=== PATIENT | male | born 1975 | race Caucasian/White ===

== ENCOUNTER → 2016-08-11 | Outpatient (CLI) | payer BC ==
[~2016-08-11] MED LIST: IBUP-1050 PO
--- NOTE | 2016-08-11 15:00 | DIAGNOSTIC IMAGING REPORT ---
LEFT KNEE 1 OR 2 VIEWS ROUTINE CLINICAL HISTORY: Left knee pain. COMPARISON: Left knee radiograph July 09, 2015. FINDINGS: Alignment of left knee is anatomic. There are postsurgical findings consistent with an ACL reconstruction. There is no joint effusion or fracture. Joint spaces are preserved. There is mild osteophytosis of the medial and patellofemoral compartments. IMPRESSION: 1. No acute fracture or joint effusion of the left knee. 2. Status post left ACL reconstruction. 3. Mild arthritis of the medial and patellofemoral compartments. Electronically signed by: Carrillo Ray M.D. 08/11/2016 2:58 PM Dictated Date/Time: 08/11/2016 2:58 PM
== END | disposition home or self-care (01) ==
LOC: C.RAD1850 14:42
PROVIDERS: ATTEND Family Medicine
DX: M25.562 Pain in left knee (principal); M17.9 Osteoarthritis of knee, unspecified; Z98.890 Other specified postprocedural states

== ENCOUNTER 2017-07-03 10:15 | Emergency (ER) | payer BC ==
[~2017-07-03] VITALS: Ht 180.3 cm; Wt 80.6 kg
[2017-07-03 10:17] VITALS: TEMP 36.9; Ht 180.3 cm; Wt 80.6 kg
[2017-07-03] MEDS ORDERED: IBUPROFEN 800 MG TAB PO STA (10:27)
--- NOTE | 2017-07-03 11:02 | EMERGENCY ROOM VISIT NOTE ---
History Report prepared by Muriel: Akash Alvarez Under the Supervision of: Dr. Klever Humphreys M.D. First contact with patient: 10:24 Chief Complaint: BACK PAIN Stated Complaint: LEFT UPPER BACK AND LEFT ARM PAIN History of Present Illness The patient is a 42 year old male who presents to the Emergency Room with complaints of intermittent left upper back pain that began three months ago. He describes this pain as a "knot." When the patient woke up this morning about 2 hours ago, he had another episode of this pain. However, it was the most severe it has ever been with radiation down his left arm. The radiation of his pain has never happened before. He denies any abnormal movements or injury to the area. The patient regularly works out multiple times per week, stating that he participates in full body, heavyweight exercises that include his shoulders. Over the past months, he had been working out through the pain. His pain is exacerbated with lying flat on his back. He has been following up with his chiropractor. He denies any fevers, chest pain, shortness of breath, neck pain, nausea, vomiting, or abdominal pain. He denies any past medical history and does not take any medications. He denies any family history of cardiac disease. His symptoms did not worsen with long car rides. He denies any recent surgeries , but has had lower lumbar nerve impingement surgery in the past. He denies any past neck surgeries. He has been taking Aleve and Ibuprofen for pain management. Source of History: patient Onset: 3 months ago Position: back (upper left) Symptom Intensity: severe Quality: cramping Timing: intermittent Modifying Factors (Worsening): rest (lying flat on back) Associated Symptoms: No fevers, No neck pain, No chest pain, No SOB, No nausea, No vomiting, No abdominal pain Note: His pain is radiating down his left arm. Review of Systems See HPI for pertinent positives and negatives. A total of ten systems were reviewed and were otherwise negative. Past Medical & Surgical Medical Problems: (1) Chronic lumbar pain Surgical Problems: (1) History of lumbar discectomy Family History Patient reports no known family medical history. Social History Smoking Status: Never Smoker Alcohol Use: occasionally Marital Status: Occupation Status: employed Current/Historical Medications Scheduled PRN Ibuprofen Tab (Motrin), 800 MG PO Q8H PRN for Pain Allergies Uncoded Allergies: ESCARGOT (Allergy, Unknown, ASTHMA, 11/18/15) Physical Exam Vital Signs Date Time Temp Pulse Resp B/P (MAP) Pulse Ox O2 Delivery O2 Flow Rate FiO2 07/03/17 13:16 75 17 130/88 99 07/03/17 10:17 36.9 85 18 137/93 99 Room Air Physical Exam GENERAL: Awake, alert, well-appearing, in no distress HENT: Normocephalic, atraumatic. Oropharynx unremarkable. EYES: Normal conjunctiva. Sclera non-icteric. NECK: Supple. No nuchal rigidity. FROM. No JVD. RESPIRATORY: Clear to auscultation. CARDIAC: Regular rate, normal rhythm. Extremities warm and well perfused. Pulses equal. ABDOMEN: Soft, non-distended. No tenderness to palpation. No rebound or guarding. No masses. RECTAL: Deferred. MUSCULOSKELETAL: Chest examination reveals no tenderness. The back is symmetrical on inspection without obvious abnormality. There is mild tenderness along the left trapezius which reproduces his distal symptoms. There is no CVA tenderness to palpation. No joint edema. He has additional tenderness to the left forearm along the radial distribution. Active/passive FROM intact. 5/5 Strength and SILT. LOWER EXTREMITIES: Calves are equal size bilaterally and non-tender. No edema. No discoloration. NEURO: Normal sensorium. No sensory or motor deficits noted. SKIN: No rash or jaundice noted. Medical Decision & Procedures ER Provider Diagnostic Interpretation: Radiology results as stated below per my review and radiologist interpretation: L SHOULDER MIN 2 VIEWS ROUTINE CLINICAL HISTORY: Left shoulder pain. No recent trauma. COMPARISON: Left shoulder radiographs April 20, 2016. FINDINGS: Alignment of the left glenohumeral joint is anatomic. No fracture or suspicious lesion is identified on this examination. An osteophyte along the superior aspect of the distal left clavicle is unchanged. This is chronic. Deformity of the distal left clavicle is unchanged since prior exam of April 20, 2016. IMPRESSION: 1. No acute fracture or dislocation of the left shoulder. 2. Unchanged appearance of the left acromioclavicular joint since exam of April 20, 2016 with chronic distal left clavicular deformity and osteophytosis. This is likely degenerative or posttraumatic. However, post surgical findings could appear similar. Electronically signed by: Carrillo Ray M.D. 07/03/2017 11:21 AM Dictated Date/Time: 07/03/2017 11:19 AM CHEST ONE VIEW PORTABLE CLINICAL HISTORY: back pain pain COMPARISON STUDY: No previous studies for comparison. FINDINGS: The bones soft tissues and hemidiaphragms are normal. The cardiomediastinal silhouette is normal. The lungs are clear. The pulmonary vasculature is normal. IMPRESSION: Negative chest. The above report was generated using voice recognition software. It may contain grammatical, syntax or spelling errors. Electronically signed by: Wilton Gray M.D. 07/03/2017 11:19 AM Dictated Date/Time: 07/03/2017 11:18 AM Medications Administered Medications (Trade) Dose Ordered Sig/Kvng Route Start Time Stop Time Status Last Admin Dose Admin Ibuprofen (Motrin Tab) 800 mg NOW STAT PO 07/03/17 10:27 07/03/17 10:36 DC 07/03/17 10:44 800 MG ED Course 1024: The patient was evaluated in room C4. A complete history and physical exam was performed. 1242: I reevaluated the patient. Discussed results and discharge instructions: He verbalized understanding and agreement. The patient is ready for discharge. Medical Decision I reviewed the patient's past medical history, medications, and the nursing notes as described above. Differential diagnosis includes but is not limited to: musculoskeletal strain, rotator cuff sprain, overuse, or tendonitis. The patient is a 42-year-old gentleman who presents to emergency Department with left shoulder arm pain intermittent numbness. History of present illness. Arrival the patient is in no acute distress, afebrile stable vital signs. On exam the patient has mild tenderness to the lateral aspect of the left trapezius dose tenors to palpation in the left forearm along the radial distribution replacing the patient's symptoms. Chest x-ray unremarkable. Left shoulder plain film notable for arthritic changes that appear to be post- traumatic. I further discussed these findings with the patient and he did endorse a remote history of an before meals separation which is consistent with the x-ray findings. Patient reports not feeling any improvement after ibuprofen and was requesting an MRI. However explained that his symptoms are mostly consistent with arthritis and possibly a tendinitis in the setting of his regular workout regimen. I recommended that conservative management is the most appropriate initial treatment with anti-inflammatories, heat, and rest as well as pcp follow-up and possibly PT if necessary. Although symptoms could be explained by cervical radiculopathy, it seems more likely that his symptoms are related to his shoulder. Otherwise, there is no indication for emergent MRI given the patient has 5/5 strength and SILT x 4 extremities and no concerning sx such as urinary retention or bowel incontinence. I explained to the patient that he should follow up with his PCP and they may arrange for an MRI if the patient feels he is not improved with conservative management and/or they may provide patient with a an orthopedic referral. I further explained that narcotics are an effective pain medication for acute severe pain such as from a bone fracture or after surgery, however, they are not recommended for chronic pain such as for headaches or back/shoulder pain as they have the potential to promote rebound hyperalgesia resulting in increased severity of the initial chronic pain when not taking narcotics. Findings and plan for follow-up reviewed with patient. Patient agreeable and d/c'd per discharge instructions. Medication Reconcilliation Current Medication List: was personally reviewed by me Blood Pressure Screening Patient's blood pressure: Elevated blood pressure Blood pressure disposition: Elevated BP felt to be situational Impression Primary Impression: Acromioclavicular joint arthritis Additional Impression: Shoulder pain, left Scribe Attestation The scribe's documentation has been prepared under my direction and personally reviewed by me in its entirety. I confirm that the note above accurately reflects all work, treatment, procedures, and medical decision making performed by me. Departure Information Dispostion Home / Self-Care Prescriptions Ibuprofen Tab (MOTRIN) 800 Mg Tab 800 MG PO Q8H Y for Pain for 7 Days, #21 TAB Prov: Klever Humphreys M.D. 07/03/17 Referrals Tomás Ndiaye M.D. (PCP) Forms HOME CARE DOCUMENTATION FORM, IMPORTANT VISIT INFORMATION Patient Instructions Arthritis Acromioclavicular, ED Shoulder Pain [facility] [place] [facility] Additional Instructions Please follow up with your primary care physician in the next 1-3 days for re- evaluation and possible physical therapy referral. You cause of your symptoms may be due to arthritis and or possible a tendinitis. Otherwise, your exam and xrays did not show signs of an emergent condition at this time. Ibuprofen for pain as needed. Heating pad a 20 minute intervals throughout the day for additional pain relief. Avoid strenuous activity. Return to the emergency department for worsening symptoms as described in the accompanying instructions. Problem Qualifiers
--- NOTE | 2017-07-03 11:20 | DIAGNOSTIC IMAGING REPORT ---
CHEST ONE VIEW PORTABLE CLINICAL HISTORY: back pain pain COMPARISON STUDY: No previous studies for comparison. FINDINGS: The bones soft tissues and hemidiaphragms are normal. The cardiomediastinal silhouette is normal. The lungs are clear. The pulmonary vasculature is normal. IMPRESSION: Negative chest. The above report was generated using voice recognition software. It may contain grammatical, syntax or spelling errors. Electronically signed by: Wilton Gray M.D. 07/03/2017 11:19 AM Dictated Date/Time: 07/03/2017 11:18 AM
--- NOTE | 2017-07-03 11:22 | DIAGNOSTIC IMAGING REPORT ---
L SHOULDER MIN 2 VIEWS ROUTINE CLINICAL HISTORY: Left shoulder pain. No recent trauma. COMPARISON: Left shoulder radiographs April 20, 2016. FINDINGS: Alignment of the left glenohumeral joint is anatomic. No fracture or suspicious lesion is identified on this examination. An osteophyte along the superior aspect of the distal left clavicle is unchanged. This is chronic. Deformity of the distal left clavicle is unchanged since prior exam of April 20, 2016. IMPRESSION: 1. No acute fracture or dislocation of the left shoulder. 2. Unchanged appearance of the left acromioclavicular joint since exam of April 20, 2016 with chronic distal left clavicular deformity and osteophytosis. This is likely degenerative or posttraumatic. However, post surgical findings could appear similar. Electronically signed by: Carrillo Ray M.D. 07/03/2017 11:21 AM Dictated Date/Time: 07/03/2017 11:19 AM
[2017-07-03] MEDS ORDERED: IBUP-1451 PO (12:25)
[2017-07-03 13:16] VITALS: BP 130/88; PULSE 75; O2SAT 99
== END 2017-07-03 12:55 | disposition home or self-care (01) ==
LOC: C.EDB 10:16 → C.EDC 12:55
DX: M19.012 Primary osteoarthritis, left shoulder (principal); Z98.890 Other specified postprocedural states; R03.0 Elevated blood-pressure reading, without diagnosis of hypertension

== ENCOUNTER 2017-07-06 05:02 | Emergency (ER) | payer BC ==
[~2017-07-06 05:02] MED LIST changes: -IBUP-1050 PO; +IBUP-1451 PO
[2017-07-06 05:09] VITALS: Ht 180.3 cm
[2017-07-06] MEDS ORDERED: ONDANSETRON INJ 2 MG/ML 2 ML VIAL IV STA (05:37)
[2017-07-06] MEDS ORDERED: KETOROLAC TROMETHAMINE 30 MG/ML VIAL IV STA (05:37)
[2017-07-06] MEDS ORDERED: MoRPHine SULFATE 4 MG/ML 1 ML CARP\\VIAL IV STA (05:37)
[2017-07-06] MEDS ORDERED: HYDROmorphone INJ 0.5 MG/0.5 ML SYR IV STA (06:01)
--- NOTE | 2017-07-06 06:40 | EMERGENCY ROOM VISIT NOTE ---
History Report prepared by Muriel: Stephanie Casey Under the Supervision of: Dr. Myah Kerns D.O. First contact with patient: 05:25 Chief Complaint: SHOULDER PAIN Stated Complaint: NECK,ARM AND ELBOW PAIN History of Present Illness The patient is a 42 year old male who presents to the Emergency Room with complaints of persistent left arm pain starting VINYL DIPPER. The patient had an MRI yesterday which showed a left foraminal disc herniation at C6-7 with impingement of the exiting nerve root. He also has lesser degenerative disc at the C6-7 level and bony changes at the C3-4 level with mild spinal stenosis and no focal disc herniation. The pain is present in the left elbow, forearm, and hand. He also has a sharp pain in his left neck. He currently rates his discomfort as a 10/10 in severity. He had Vicodin and ibuprofen VINYL DIPPER. He has been having numbness in his left arm also. He denies any injury. He denies any abdominal pain. He does not have any medical problems. He has been on prednisone. Source of History: patient, spouse/significant other Onset: VINYL DIPPER Position: arm (left) Symptom Intensity: 10/10 Quality: other (pain) Timing: other (persistent) Associated Symptoms: + neck pain, + numbness, No abdominal pain Review of Systems See HPI for pertinent positives & negatives. A total of 10 systems reviewed and were otherwise negative. Past Medical & Surgical Medical Problems: (1) Chronic lumbar pain Surgical Problems: (1) History of lumbar discectomy Family History Patient reports no known family medical history. Social History Smoking Status: Never Smoker Alcohol Use: occasionally Marital Status: Housing Status: lives with family Occupation Status: employed Current/Historical Medications Scheduled PRN Ibuprofen Tab (Motrin), 800 MG PO Q8H PRN for Pain Oxycodone/Acetaminophen 5MG/325MG (Percocet 5MG/325MG), 2 TABLETS PO Q4H PRN for Pain Allergies Uncoded Allergies: ESCARGOT (Allergy, Unknown, ASTHMA, 11/18/15) Physical Exam Vital Signs Date Time Temp Pulse Resp B/P (MAP) Pulse Ox O2 Delivery O2 Flow Rate FiO2 07/06/17 07:11 37.0 99 17 142/90 98 07/06/17 06:50 99 17 142/90 98 Room Air 07/06/17 05:09 105 26 158/78 94 Room Air Physical Exam Neck: Supple; no JVD, nuchal rigidity, cervical lymphadenopathy. He does have pain with palpation of the left cervical paraspinous muscles. Heart: Regular rate and rhythm. There is a normal S1 and S2 with no murmurs, clicks, or gallops appreciated. Lungs: Clear to auscultation bilaterally with no wheezes, rales, or rhonchi. Abdomen: Soft, completely nontender, nondistended, with good bowel sounds. There are no palpable pulsatile masses or hepatosplenomegaly. There is no guarding, rigidity, or rebound noted. Extremities: No evidence of cyanosis, clubbing, or edema. There are easily palpable peripheral pulses. Skin: warm and dry with good turgor and no rashes. Neuro: Normal muscle strength in the upper extremities. He has normal sensation in both hands, forearms and deltoid area Medical Decision & Procedures Medications Administered Medications (Trade) Dose Ordered Sig/Kvng Route Start Time Stop Time Status Last Admin Dose Admin Ketorolac Tromethamine (Toradol Inj) 30 mg NOW STAT IV 07/06/17 05:37 07/06/17 05:39 DC 07/06/17 05:49 30 MG Morphine Sulfate (MoRPHine SULFATE INJ) 4 mg NOW STAT IV 07/06/17 05:37 07/06/17 05:39 DC 07/06/17 05:49 4 MG Ondansetron HCl (Zofran Inj) 4 mg NOW STAT IV 07/06/17 05:37 07/06/17 05:39 DC 07/06/17 05:50 4 MG Hydromorphone HCl (Dilaudid Inj) 0.5 mg NOW STAT IV 07/06/17 06:01 07/06/17 06:02 DC 07/06/17 06:08 0.5 MG Procedure Medications: Zofran Inj 4 mg IV, Morphine Sulfate 4 mg IV, Toradol Inj 30 mg IV , Dilaudid Inj 0.5 mg IV. ED Course 0531: The patient was evaluated in room B3B. A complete history and physical examination were performed. Nursing notes and previous electronic medical records were reviewed. IV lock was established. 0537: Zofran Inj 4 mg IV, Morphine Sulfate 4 mg IV, Toradol Inj 30 mg IV. 0559: I reevaluated the patient. He rates his pain 6/10. He is still having pain. 0601: Dilaudid Inj 0.5 mg IV. 0635: I reevaluated the patient. He appears to be pain free. He is moving his arm around and texting. He is requesting I speak with Dr. Rodrigues. He rates his pain as a 0/10. 0639: I discussed the patient's case with Dr. Rodrigues, orthopedic surgeon [facility]. He will see him at 0800 in the office tomorrow morning. 0644: I reevaluated the patient. He would like to go home. I discussed findings and results with him. He verbalized agreement of the treatment plan. He was discharged home. Medical Decision The patient is a 42 year old male who presents to the ED with left arm pain. Differential diagnosis includes neuropathic pain, cervical radiculopathy, herniated cervical disc. The patient presents to emergency by mother with severe left upper extremity pain and left-sided neck pain after being diagnosed last evening with a herniated cervical disc at C6-C7. The patient is neurologically intact. His presentation of pain seemed consistent with severe neuropathic pain secondary to cervical radiculopathy. I was able to treat his pain adequately so he was pain-free at the time of discharge. The patient had been taking Vicodin for pain at home with no relief. I switched this to Percocet and encouraged him to finish the course of prednisone. Medication Reconcilliation Current Medication List: was personally reviewed by me Blood Pressure Screening Patient's blood pressure: Elevated blood pressure Blood pressure disposition: Elevated BP felt to be situational Consults Time Called: 637 Consulting Physician: Dr. Rodrigues, orthopedic surgeon [facility] Returned Call: 0639 I discussed the patient's case with him. He will see him at 0800 in the office tomorrow morning. Impression Primary Impression: Herniation of cervical intervertebral disc with radiculopathy Scribe Attestation The scribe's documentation has been prepared under my direction and personally reviewed by me in its entirety. I confirm that the note above accurately reflects all work, treatment, procedures, and medical decision making performed by me. Departure Information Dispostion Home / Self-Care Prescriptions Oxycodone/Acetaminophen 5MG/325MG (PERCOCET 5MG/325MG) Tab 2 TABLETS PO Q4H Y for Pain, #20 TAB Prov: Myah Kerns D.O. 07/06/17 Referrals Tomás Ndiaye M.D. (PCP) Forms HOME CARE DOCUMENTATION FORM, IMPORTANT VISIT INFORMATION Patient Instructions [facility] Additional Instructions Rest. Avoid using the left arm at all. Percocet - 2 tabs. every 4 hours for pain. This is an opioid and is addictive. You should only take it for a short time. Stop the other pain meds. Continue the steroids. Do not drive while taking it.
[2017-07-06] MEDS ORDERED: OXYC-57 PO (06:52)
[2017-07-06 07:11] VITALS: BP 142/90; PULSE 99; TEMP 37; O2SAT 98
== END 2017-07-06 07:12 | disposition home or self-care (01) ==
LOC: C.EDB 05:03
DX: M50.10 Cervical disc disorder with radiculopathy, unspecified cervical region (principal)

== ENCOUNTER → 2017-07-07 | Outpatient (CLI) | payer BC ==
[~2017-07-07] MED LIST changes: +IBUP-1428 PO; +OXYC-57 PO
[2017-07-07 13:45] LABS: HEMATOCRIT 39.8 % (42-52); MEAN CELL VOLUME 92.6 fL (80-100); MEAN CORPUSCULAR HEMOGLOBIN 31.2 pg (25-34); MEAN CORPUSCULAR HGB CONC 33.7 g/dl (32-36); MEAN PLATELET VOLUME 9.1 fL (7.4-10.4); PLATELET COUNT 224 K/uL (130-400); WHITE BLOOD COUNT 7.29 K/uL (4.8-10.8)
== END | disposition home or self-care (01) ==
LOC: C.LABBC 09:30
PROVIDERS: ATTEND Orthopaedic Surgery Orthopaedic Surgery of the Spine
DX: Z01.812 Encounter for preprocedural laboratory examination (principal)

== ENCOUNTER 2017-07-12 05:17 | Observation (INO) | payer BC ==
[2017-07-11 14:57] VITALS: BMI 24.0
[2017-07-12] VITALS (18 sets, daily range): BP systolic 133–161; BP diastolic 75–96; PULSE 58–89; TEMP 36.4–36.9; O2SAT 2–98; Ht 180.3 cm; Wt 79.5 kg
[~2017-07-12] VITALS: Ht 180.3 cm; Wt 79.5 kg
[~2017-07-12 05:17] MED LIST changes: -IBUP-1451 PO
[2017-07-12] MEDS ORDERED: LACTATED RINGER'S 1000ML 1,000 ML IV SCH (06:00)
[2017-07-12] MEDS ORDERED: CEFAZOLIN 2000MG IV PUSH 10 ML IV SCH (06:00)
[2017-07-12] MEDS ORDERED: NSS 1000ML IV SCH (06:00)
[2017-07-12] MEDS ORDERED: ONDANSETRON INJ 2 MG/ML 2 ML VIAL ONE ×2 (06:41→07:56)
[2017-07-12] MEDS ORDERED: MIDAZOLAM HCL 1 MG/ML 2ML VIAL ONE (06:41)
[2017-07-12] MEDS ORDERED: DEXAMETHASONE SOD INJ 4 MG/ML VIAL ONE ×2 (06:41→07:56)
[2017-07-12] MEDS ORDERED: HYDROmorphone INJ 2 MG/ML SYR/VIAL ONE (06:41)
[2017-07-12] MEDS ORDERED: FENTANYL CITRATE INJ 50 MCG/1 ML 2 ML VIAL ONE ×4 (06:41→10:36)
[2017-07-12] MEDS ORDERED: GLYCOPYRROLATE INJ 0.2 MG/ML VIAL ONE (06:41)
[2017-07-12] MEDS ORDERED: LIDOCAINE HCL 2% 2 ML VIAL (20MG/ML) ONE (06:41)
[2017-07-12] MEDS ORDERED: NEOSTIGMINE METHYLSULFATE 5 MG/5 ML SYR ONE (06:41)
[2017-07-12] MEDS ORDERED: PROPOFOL IV EMULSION 10 MG/ML 20 ML VIAL IV ONE (06:41)
[2017-07-12] MEDS ORDERED: BACITRACIN 50000 UNIT VIAL ONE (06:54)
[2017-07-12] MEDS ORDERED: BUPIVACAINE/EPINEPHRINE 0.5% MPF 1:200,000 30 ML VIAL ONE ×2 (06:54→07:35)
[2017-07-12] MEDS ORDERED: THROMBIN FOR SOLN 20000 UNIT KIT ONE (06:54)
[2017-07-12] MEDS ORDERED: GELATIN SPONGE SZ 100 ONE (06:54)
--- NOTE | 2017-07-12 07:14 | History & Physical Bridge Note ---
H&P Re-Evaluation Bridge Note: I have examined the patient, reviewed the History & Physical and in the interval since the performance of the History & Physical I have noted the following changes of clinical significance: No changes noted
--- NOTE | 2017-07-12 07:22 | History and Physical ---
History & Physical Date Jul 12, 2017. 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 Past Medical/Surgical History Medical Problems: (1) Chronic lumbar pain Surgical Problems: (1) History of lumbar discectomy Additional History Hepatic Disease: No Endocrine Disorder: No Kidney Disease: No Hypertension: No Heart Disease: No Bleeding Tendencies: No Infectious Diseases: No Allergies Coded Allergies: NO KNOWN DRUG ALLERGIES (Verified Allergy, Unknown, ., 07/12/17) Uncoded Allergies: ESCARGOT (Allergy, Unknown, ASTHMA, 11/18/15) Home Medications Scheduled PRN Ibuprofen (Motrin), 800 MG PO Q8H PRN for Pain Oxycodone/Acetaminophen 5MG/325MG (Percocet 5MG/325MG), 2 TABLETS PO Q4H PRN for Pain Physical Examination Skin: warm/dry Eyes: normal inspection ENT: normal ENT inspection Head: normocephalic Neck: supple, + pertinent finding (loss of range of motion in flexion extension and in rotation) Cardiovascular: regular rate, rhythm Abdomen / GI: normal bowel sounds Back: normal inspection Extremities: + pertinent finding (weakness numbness and tingling wrist extensors and triceps function) Genitourinary - Male: normal male genitalia Neurologic/Psych: + pertinent finding (loss of strength loss of sensation) Diagnosis Cervical disc herniation C6-7 cervical spine ASA Classification: ASA Class II Plan of Treatment ACDF cervical spine C6 7 and iliac crest bone graft
[2017-07-12] MEDS ORDERED: PROMETHAZINE HCL INJ 6.25 MG in SODIUM CHLORIDE 0.9% 50ML 50 ML IV PRN (08:15)
[2017-07-12] MEDS ORDERED: EpHEDrine SULFATE INJ 50 MG/ML AMP IV PRN (08:15)
[2017-07-12] MEDS ORDERED: ATROPINE SULFATE 0.1 MG/ML 5ML SYR IV PRN (08:15)
[2017-07-12] MEDS ORDERED: ONDANSETRON INJ 2 MG/ML 2 ML VIAL IV PRN ×2 (08:15→10:00)
[2017-07-12] MEDS ORDERED: FENTANYL CITRATE INJ 50 MCG/1 ML 2 ML VIAL IV PRN (08:15)
[2017-07-12] MEDS ORDERED: HYDROmorphone INJ 1 MG/ML SYR IV PRN (08:15)
[2017-07-12] MEDS ORDERED: SODIUM CHLORIDE 0.9% 1000ML 1,000 ML IV SCH (09:52)
--- NOTE | 2017-07-12 09:54 | [facility] Post Operative Brief Note ---
Immediate Operative Summary Operative Date Jul 12, 2017. Pre-Operative Diagnosis Cervical disc herniation C6-7 cervical spine Post-Operative Diagnosis Cervical disc herniation C6-7 cervical spine Procedure(s) Performed C6-C7 Anterior Cervical Discectomy and Fusion with Right Iliac Crest Bone Graft Surgeon Dr. Gil Rodrigues Application Packaging Consultant Surgeon(s) Jairo Acevedo PA-C Estimated Blood Loss 10 mL Findings cord compression Specimens No pathology specimens per surgeon Complication(s) None Disposition Recovery Room / PACU
--- NOTE | 2017-07-12 09:59 | DIAGNOSTIC IMAGING REPORT ---
Cervical SPINE, INTRAOPERATIVE FLUOROSCOPY HISTORY: C6-C7 ACDF. FLUOROSCOPY TIME: 11 seconds. FINDINGS: Intraoperative fluoroscopy was provided for the cervical spine. A single fluoroscopic spot image of the cervical spine. There is anterior cervical discectomy and fusion within the lower cervical spine. The exact level is difficult to determine on this small [id number]. The hardware appears intact. IMPRESSION: Fluoroscopy provided for a anterior cervical discectomy and fusion of the lower cervical spine. The hardware appears intact.. Electronically signed by: Bryce Dickson M.D. 07/12/2017 9:58 AM Dictated Date/Time: 07/12/2017 9:56 AM
[2017-07-12] MEDS ORDERED: IBUPROFEN 800 MG TAB PO PRN (10:00)
[2017-07-12] MEDS ORDERED: NALOXONE HCL 0.4 MG/1 ML VIAL/CARP IV PRN (10:00)
[2017-07-12] MEDS ORDERED: MAGNESIUM HYDROXIDE SUSP 30 ML UDC PO PRN (10:00)
[2017-07-12] MEDS ORDERED: DEXAMETHASONE INJ 8 MG in SYRINGE 0 ML IV PRN (10:00)
[2017-07-12] MEDS ORDERED: ACETAMINOPHEN IV 1,000 MG in EMPTY BAG 0 ML IV PRN (10:00)
[2017-07-12] MEDS ORDERED: LORAZEPAM INJ 0.5 MG in SYRINGE 0.75 ML IV PRN (10:00)
[2017-07-12] MEDS ORDERED: RACEPINEPHRINE 2.25% NEBU SOLN 0.5 ML VIAL INH PRN (10:00)
[2017-07-12] MEDS ORDERED: IV FLUIDS COMPLETED PRN (10:15)
--- NOTE | 2017-07-12 10:42 | OPERATIVE REPORT ---
DATE OF OPERATION: 07/12/2017 PREOPERATIVE DIAGNOSIS: Spinal cord compression, large disc herniation, C6-C7 cervical spine. POSTOPERATIVE DIAGNOSIS: Same. PROCEDURE: 1. Included an anterior cervical discectomy classic Fong Blank approach at C6-C7 cervical spine, removal of large disc herniation. 2. Right structural autograft from the right iliac crest through a separate incision of course. 3. Bone grafting of the interspace at C6-C7 and anterior plate at C6-C7. SURGEON: Gil Rodrigues DO. INFORMATICA MDM DEVELOPER: Jairo Acevedo PA-C. COMPLICATIONS: Zero. BLOOD LOSS: Less than 20. ANESTHESIA: General. DESCRIPTION OF PROCEDURE: The patient was taken to the operating room. A general intubated anesthetic provided to the patient, kept supine, prepped and draped sterile. His iliac crest and cervical spine scrubbed first with Betadine and prepped with ChloraPrep. Draped sterile. We made a skin incision transverse right over the C6 interspace dissecting the soft tissue. We came down on the anterior aspect of the spinal vertebral body at C6-C7. We marked this with a 22 gauge spinal needle. We then performed a formal discectomy first with a 15 scalpel blade, pituitaries of various size and curettes cleaning out the disc interval. I was able to remove a large herniation that was posterior to the posterior longitudinal ligament. It was up behind the vertebral body of C6 out to the neural foramen favoring the left hand side. I felt that all visible disc material particularly the compressive aspect was completely removed. We then went to the right iliac crest fascia. Skin incision, fascial incision. I was able to harvest a structural autograft approximately 8-7 mm in height tapering to about 14 mm and approximately 15 mm left to right. This was placed into the vacated discectomy site at C6-C7. The fit was near anatomic. We irrigated thoroughly. We then placed a small plate by the [employer] over the construct, 18 mm in length, 2.5 mm in thickness, transfixed with 4 cortical cancellous screws. We locked it down, took a crosstable lateral radiograph. The fit seemed perfect. We irrigated and closed over a Deepa drain in the cervical spine. No drain in the crest. Sterile dressings applied. Cervical collar applied. The patient returned to recovery room satisfactory and stable. No apparent interoperative complications. Sponge and needle counts correct. IMPLANTS USED: By [employer]. I attest to the content of the Intraoperative Record and any orders documented therein. Any exception s are noted below.
[2017-07-12] MEDS ORDERED: LABETALOL HCL IV 5 MG/ML 20ML IV ONE (11:01)
--- NOTE | 2017-07-12 11:04 | Anesthesiology Progress Note ---
Anesthesia Post Op Note Date & Time Jul 12, 2017 at 11:03 Vital Signs Pain Intensity: 4 Vital Signs Past 12 Hours Date Time Temp Pulse Resp B/P (MAP) Pulse Ox O2 Delivery O2 Flow Rate FiO2 07/12/17 10:53 71 14 07/12/17 10:53 71 14 100 07/12/17 10:52 170/96 07/12/17 10:51 157/101 07/12/17 10:48 80 13 100 07/12/17 10:48 78 13 07/12/17 10:46 157/95 07/12/17 10:43 82 17 07/12/17 10:43 82 17 100 07/12/17 10:41 160/96 07/12/17 10:38 76 14 100 07/12/17 10:38 76 14 07/12/17 10:36 151/94 07/12/17 10:33 75 13 07/12/17 10:33 75 13 100 07/12/17 10:31 154/94 07/12/17 10:28 77 12 100 07/12/17 10:28 77 12 07/12/17 10:26 151/87 07/12/17 10:23 76 13 07/12/17 10:23 76 13 100 07/12/17 10:22 77 16 100 07/12/17 10:22 78 16 07/12/17 10:21 149/84 07/12/17 10:17 81 15 100 07/12/17 10:17 80 15 07/12/17 10:16 153/85 07/12/17 10:12 85 16 97 07/12/17 10:12 85 16 07/12/17 10:11 146/79 07/12/17 10:08 155/82 07/12/17 10:07 36.2 78 16 155/82 100 Oxymask 10 07/12/17 10:07 84 11 07/12/17 10:07 84 11 100 07/12/17 05:46 36.5 67 20 134/91 (105) 96 Room Air Notes Mental Status: alert / awake / arousable, participated in evaluation Pt Amnestic to Procedure: Yes Nausea / Vomiting: adequately controlled Pain: adequately controlled Airway Patency, RR, SpO2: stable & adequate BP & HR: stable & adequate Hydration State: stable & adequate Anesthetic Complications: no major complications apparent Will give dose of labetalol to ensure patient is more normotensive and will then transfer from PACU.
--- NOTE | 2017-07-12 11:28 | Anesthesiology Progress Note ---
Anesthesia Post Op Note Date & Time Jul 12, 2017 at 11:28 Vital Signs Pain Intensity: 4 Vital Signs Past 12 Hours Date Time Temp Pulse Resp B/P (MAP) Pulse Ox O2 Delivery O2 Flow Rate FiO2 07/12/17 11:14 36.3 07/12/17 11:09 69 16 07/12/17 11:09 69 16 100 07/12/17 11:06 164/96 07/12/17 11:04 81 16 07/12/17 11:04 83 16 100 07/12/17 11:01 167/100 07/12/17 10:59 76 18 100 07/12/17 10:59 76 18 07/12/17 10:56 165/97 07/12/17 10:54 72 16 100 07/12/17 10:54 73 16 07/12/17 10:53 71 14 07/12/17 10:53 71 14 100 07/12/17 10:52 170/96 07/12/17 10:51 157/101 07/12/17 10:48 80 13 100 07/12/17 10:48 78 13 07/12/17 10:46 157/95 07/12/17 10:43 82 17 07/12/17 10:43 82 17 100 07/12/17 10:41 160/96 07/12/17 10:38 76 14 100 07/12/17 10:38 76 14 07/12/17 10:36 151/94 07/12/17 10:33 75 13 07/12/17 10:33 75 13 100 07/12/17 10:31 154/94 07/12/17 10:28 77 12 100 07/12/17 10:28 77 12 07/12/17 10:26 151/87 07/12/17 10:23 76 13 07/12/17 10:23 76 13 100 07/12/17 10:22 77 16 100 07/12/17 10:22 78 16 07/12/17 10:21 149/84 07/12/17 10:17 81 15 100 07/12/17 10:17 80 15 07/12/17 10:16 153/85 07/12/17 10:12 85 16 97 07/12/17 10:12 85 16 07/12/17 10:11 146/79 07/12/17 10:08 155/82 07/12/17 10:07 36.2 78 16 155/82 100 Oxymask 10 07/12/17 10:07 84 11 07/12/17 10:07 84 11 100 07/12/17 05:46 36.5 67 20 134/91 (105) 96 Room Air Notes Mental Status: alert / awake / arousable, participated in evaluation Pt Amnestic to Procedure: Yes Nausea / Vomiting: adequately controlled Pain: adequately controlled Airway Patency, RR, SpO2: stable & adequate BP & HR: stable & adequate Hydration State: stable & adequate Anesthetic Complications: no major complications apparent
[2017-07-12] MEDS ORDERED: LABETALOL HCL IV 5 MG/ML 20ML IV PRN (11:30)
[2017-07-12] MEDS ORDERED: NURSING VERBAL MED ORDER ONE ×2 (11:30→20:00)
[2017-07-12] MEDS: DEXAMETHASONE INJ 6 MG in SYRINGE 0 ML IV SCH ×2 (13:31→21:15)
[2017-07-12] MEDS: OXYCODONE/ACETAMINOPHEN 5-325 TAB PO PRN ×3 (13:38→23:36)
[2017-07-12] MEDS ORDERED: INFLUENZA VIRUS QUAD VACCINE 0.5 ML SYR IM. ONE (14:00)
[2017-07-12] MEDS ORDERED: INFLUENZA ADMINISTRATION CHARGE ONE (14:00)
[2017-07-12] MEDS: CEFAZOLIN IV 1,000 MG in SYRINGE 0 ML IV SCH ×2 (15:55→23:36)
[2017-07-12] MEDS: HYDROmorphone INJ 1 MG/ML SYR IV PRN ×2 (17:03→21:15)
[2017-07-12] MEDS: DOCUSATE SODIUM 100 MG CAP PO SCH (20:44)
[2017-07-13] VITALS (8 sets, daily range): BP systolic 120–151; BP diastolic 67–89; PULSE 55–66; TEMP 36.6–36.8; O2SAT 96–99
[2017-07-13] MEDS: HYDROmorphone INJ 1 MG/ML SYR IV PRN (00:46)
[2017-07-13] MEDS: DEXAMETHASONE INJ 6 MG in SYRINGE 0 ML IV SCH (05:38)
--- NOTE | 2017-07-13 07:21 | Discharge Instructions ---
Discharge Instructions Date of Service Jul 13, 2017. Admission Reason for Admission: Cord Compression Discharge Discharge Diagnosis / Problem: same Discharge Goals Goal(s): Improve function Activity Recommendations Activity Limitations: as noted below Lifting Limitations: until after follow-up appointment Exercise/Sports Limitations: until after follow-up appointment May Resume Sexual Activity: after follow-up appointment Shower/Bathe: keep incision dry home , rest, recover . Instructions / Follow-Up Instructions / Follow-Up MEDICATIONS: Please take your prescriptions as instructed at your pre-op appointment. SPECIAL CARE: The following information is intended to answer some of the common questions and concerns regarding your surgery. Each patient is an individual and receives individual counselling throughout the course of treatment, from diagnosis to surgery all the way through recovery. What follows is not an exhaustive list, but should be a useful guide to some of the common questions and concerns patients have regarding their surgeries. These are not provided to keep you from calling us; rather, they give you something accurate and concrete to reference as you recover from your procedure. If you need us, we are available to you. As always, if you are not sure about something, call us at [phone]. MEDICAL EMERGENCIES: For these conditions, call 911 or go to your local hospital-based Emergency Department - not [facility] or equivalent. * Paralysis * Severe chest pain or difficulty breathing * Swelling or redness of either leg Spine procedures can be rather complex and though complications are rare, they do occur. In such cases, effective advice regarding emergency situations cannot always be addressed over the telephone. You may be referred to the emergency department for more effective management of your problem. Activity Limitations: It is important to give your body time to heal, so please limit your activities : * In general, don't do anything that moves your spine too much. You should avoid contact sports, twisting or heavy lifting while you recover. * 5-10 pounds is all you should attempt to lift. * You should not plan on driving for approximately 3 weeks and you should avoid traveling more than 30-45 minutes at a time. Longer trips should be broken down with walking breaks spaced appropriately. * Physical therapy is not usually required. * Walking and good posture practices will help you recover and regain your function. * Avoid straining or sudden changes in position. * In general, the goal is to take it easy and recover. Don't cause any new problems. Just relax. Showers: * Do not take a bath, use a Jacuzzi or hot tub or otherwise submerge your incision. * It is usually safe to take a shower 4-5 days after your surgery. * Your incision does not require any special creams or ointments. * Simply clean it with soap and water, dry and re-dress with a clean bandage afterwards. Incision: * Keep incision clean, dry and protected until your first follow-up appointment. * Some amount of drainage and redness is normal. Any drainage should be fairly clear and not have a foul odor. * If you feel anything is wrong or you have excessive drainage, please call us. * Your stitches and shea will be removed 10-14 days after your surgery. At the time of your first post-op visit. * Neck surgeries are typically closed with a suture underneath the skin. The steri-strips over the incision should be maintained until we see you in the office. Bracing: * You may be provided with a back or neck brace to encourage good posture and prevent injury. It will remind you not to do too much as you heal and will alert others to the fact that you have had a surgery. * Back braces may be removed for showers and when you are resting at home. They must be worn when you are walking around for any period of time or for travel. * For neck surgery, you will likely be provided with two cervical collars. The soft collar ([place] or foam rubber) is worn most commonly throughout the day and while sleeping. The plastic collar (provided at the hospital) is for showering/bathing. * Except while eating, collars should remain in place. More specifically, bracing is provided for a purpose and should be worn. * Please obtain your brace or collars prior to your operation and bring them to the hospital with you on the day of surgery. * You should also bring your collars to your post-op appointment with Dr. Rodrigues. You should always take good care of your body and practice healthy habits, especially following surgery. You should: * Follow your doctor's treatment plan * Sit and stand properly with good posture (ears over shoulders, shoulders over hips) Don't slouch * Learn to lift correctly * Exercise regularly (low-impact aerobic exercise is especially good, but check with your doctor first) * Generally, be up and walking for 5-10 minutes at a time at least 3-4 times per day from the day you get home * Increasing walking to tolerance until you can walk for 20-30 minutes at a time * Attain and maintain a healthy body weight * Eat healthy foods ( a well-balanced, low-fat diet rich in fruits and vegetables) and get enough calcium * Avoid excessive use of alcohol When to call our office - If you notice any of the following: * Increased pain not relieve by pain medicine * Fevers greater then 100 degrees F, chills or flu symptoms * Increased redness around incision * Drainage from the incision that is not clear * Any foul smelling drainage * Swelling or fluid collection beneath the skin Miscellaneous: * In the hospital, you may be given a walker or cane for support while walking. These are temporary needs and are intended to prevent injuries due to falls. You may discontinue them when you feel strong and steady enough on your feet. * Sleep in a comfortable position. We find that many patients find a lounge chair or recliner with several pillows to be beneficial in the early post-operative period. * The support stockings should be used for 7-10 days and may be discontinued when you are back to walking more and conducting usual household activities. No problem is insignificant. We are here to help you and get you well. Contact us at [phone]. Definitions: Foraminotomy: If part of the disc or a bone spur (osteophyte) is pressing on a nerve as it leaves the vertebra (through an exit called the foramen), a foraminotomy may be done. Otomy means "to make an opening." A foraminotomy is making the opening of the foramen larger, so the nerve can exit without being compressed. Laminotomy: Similar to the foraminotomy, a laminotomy makes a larger opening, this time in your bony plate protecting your spinal canal and spinal cord (the lamina). The lamina may be pressing on your nerve, so the surgeon may make more room for the nerves using a laminotomy. Laminectomy: Sometimes, a laminotomy is not sufficient. The surgeon may need to remove all or part of the lamina. This procedure is called a laminectomy. This can often be done at many levels without any harmful effects. Current Hospital Diet Patient's current hospital diet: Regular Diet Discharge Diet Recommended Diet: Regular Diet Procedures Procedures Performed: C6-C7 Anterior Cervical Discectomy and Fusion with Right Iliac Crest Bone Graft Pending Studies Studies pending at discharge: no Medical Emergencies . Who to Call and When: Medical Emergencies: If at any time you feel your situation is an emergency, please call 911 immediately. . Non-Emergent Contact Non-Emergency issues call your: Surgeon . "Provider Documentation" section prepared by Gil Rodrigues. . VTE Core Measure Inpt VTE Proph given/why not?: Treatment not indicated
[2017-07-13] MEDS: CEFAZOLIN IV 1,000 MG in SYRINGE 0 ML IV SCH (08:00)
[2017-07-13] MEDS: OXYCODONE/ACETAMINOPHEN 5-325 TAB PO PRN ×2 (09:16→11:01)
[2017-07-13] MEDS: DOCUSATE SODIUM 100 MG CAP PO SCH (09:16)
[2017-07-13] MEDS ORDERED: OXYC-57 PO (11:22)
--- NOTE | 2017-07-13 17:36 | DISCHARGE SUMMARY ---
HOSPITAL COURSE: He was improved, stable, seen at approximately 11:00 in the morning on the 13 of July. He had no gross neurological issues or complaints, some weakness of triceps musculature, no shortness of breath, no chest pain, taking p.o. Wound protected. IMPRESSION: Anterior cervical discectomy and fusion for spinal cord compression, doing well in the short run. DISPOSITION: Dressing changed has been provided. Collar has been provided with medications. He will be discharged home with his improved stable condition. Instructions given, precautions given from the computer here at [facility]. He tolerated it well and we will see him back in the office in 10 days. Prescription for Percocet offered as well.
[2017-07-14] MEDS ORDERED: BISACODYL 5 MG TABEC PO PRN (06:00)
[2017-07-14] MEDS ORDERED: BISACODYL 10 MG SUPP PR PRN (06:00)
== END 2017-07-13 12:14 | disposition home or self-care (01) ==
LOC: C.ACU 05:17 → C.3E 06:00 → INTOOBSV 06:00 → ENRESERV 11:08
PROVIDERS: ADMIT Orthopaedic Surgery Orthopaedic Surgery of the Spine; ATTEND Orthopaedic Surgery Orthopaedic Surgery of the Spine
DX: M50.20 Other cervical disc displacement, unspecified cervical region (principal)

== ENCOUNTER 2024-03-03 15:53 | Observation (INO) ==
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
[2024-03-03] MEDS: LIDOCAINE/EPINEPH/TETRACAINE 1 EA SYR EXT STA (16:49)
[2024-03-03] MEDS: LIDOCAINE 1% LOCAL 20 ML VIAL INFIL ONE (16:49)
[2024-03-03] MEDS: AMOXICILLIN/CLAVULANATE 875 MG TAB PO ONE (17:13)
--- NOTE | 2024-03-03 17:45 | XRay Report ---
XR knee RT 3V CLINICAL HISTORY: R knee abrasions, foreign bodies COMPARISON STUDY: None. FINDINGS: Soft tissue swelling/injury within the lateral aspect of the knee. No radiopaque foreign dav dies. No fracture or dislocation. No significant knee effusion. IMPRESSION: Soft tissue injury within the lateral aspect of the right knee. No radiopaque foreign dav dies. No acute fractures. ACT 112: Negative or not required by law. Electronically signed by: Bryce Dickson M.D. 03/03/2024 5:43 PM
--- NOTE | 2024-03-03 17:47 | XRay Report ---
XR hand RT min 3V routine CLINICAL HISTORY: Right hand abrasions. Assess for foreign body. COMPARISON STUDY: None. FINDINGS: Overlying bandages within the right hand. No additional radiopaque foreign bodies. No acute fracture or dislocation. Soft tissue swelling at the MCP joints. IMPRESSION: 1. No fracture or dislocation within the right hand. 2. Overlying bandages within the right hand. No additional radiopaque foreign bodies. ACT 112: Negative or not required by law. Electronically signed by: Bryce Dickson M.D. 03/03/2024 5:46 PM
--- NOTE | 2024-03-03 17:48 | XRay Report ---
XR elbow RT min 3V routine CLINICAL HISTORY: R elbow abrasions, foreign bodies COMPARISON STUDY: Right elbow 09/16/2019. FINDINGS: No fracture or dislocation. Posterior soft tissue swelling with a few punctate foci of supe rficial debris noted. This is best seen on the lateral view. No elbow effusion. IMPRESSION: 1. No fracture or dislocation within the right elbow. 2. Posterior soft tissue swelling with a few punctate foci of superficial debris. ACT 112: Negative or not required by law. Electronically signed by: Bryce Dickson M.D. 03/03/2024 5:47 PM
[2024-03-03] MEDS: oxyCODONE HCL IR 5 MG TAB (IMMEDIATE RELEASE) PO STA (17:49)
[2024-03-03] MEDS: AMOXICILLIN/CLAVULANATE 875MG HOME PACK PO ONE (18:53)
[2024-03-03] MEDS: KETOROLAC TROMETHAMINE 10 MG TABLET PO STA (18:53)
[2024-03-03] MEDS: KETOROLAC TROMETHAMINE 15 MG/ML VIAL IV ONE (19:01)
[2024-03-03] MEDS: ceFAZolin 2000MG 2,000 MG/15 ML SYR IV STA (19:01)
[2024-03-03 19:04] LABS: Basophils # (auto) 0.07 K/uL (0.00-0.20); Basophils % (auto) 0.7 %; Eosinophils # (auto) 0.28 K/uL (0.00-0.50); Eosinophils % (auto) 2.7 %; Hematocrit (blood only) 39.4 % (42.0-52.0); Hemoglobin 12.9 g/dl (14.0-18.0); Immature Granulocytes # (auto) 0.03 K/uL (0.01-0.20); Immature Granulocytes % (auto) 0.3 %; Lymphocytes # (auto) 2.13 K/uL (1.20-3.40); Lymphocytes % (auto) 20.5 %; Mean Corpuscular Hgb Conc 32.7 g/dL (32.0-36.0); Mean Corpuscular Volume 88.5 fL (80.0-100.0); Mean Platelet Volume 9.3 fL (9.4-12.4); Monocytes # (auto) 0.91 K/uL (0.11-0.59); Monocytes % (auto) 8.8 %; Neutrophils # (auto) 6.97 K/uL (1.40-6.50); Platelet Count 267 K/uL (130-400); RDW Coefficient of Variation 13.6 % (11.5-14.5); RDW Standard Deviation 44.3 fL (36.4-46.3); Red Blood Count 4.45 M/uL (4.70-6.10); White Blood Count 10.39 K/ul (4.8-10.8)
[2024-03-03 19:12] LABS: Albumin Globulin Ratio 1.5 (0.9-2); Albumin Level 4.4 gm/dl (3.4-5.0); BUN Creatinine Ratio 19.1 (10-20); Bilirubin,Total 0.5 mg/dl (0.2-1.0); Calcium 9.3 mg/dl (8.6-10.3); Creatinine Clr Calc Pharmacy 75.8 ml/min; Est GFR (African American) 90.9 ml/min; Est GFR (Non-African American) 78.4 ml/min; Potassium 3.8 mmol/L (3.5-5.1); Total Protein 7.4 gm/dl (6.0-8.3)
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
[2024-03-04] MEDS: KETOROLAC TROMETHAMINE 15 MG/ML VIAL IV ONE ×2 (02:02→10:35)
[2024-03-04] MEDS: ceFAZolin 2000MG 2,000 MG/15 ML SYR IV SCH (02:03)
[2024-03-04] MEDS: MELATONIN 3 MG TAB PO PRN (04:26)
[2024-03-04] MEDS: ACETAMINOPHEN 325 MG TAB PO PRN (05:56)
[2024-03-04] MEDS: HYDROmorphone INJ 0.5 MG/0.5 ML SYR IV STA (06:36)
[2024-03-04 10:17] LABS: Basophils # (auto) 0.05 K/uL (0.00-0.20); Basophils % (auto) 0.5 %; Eosinophils # (auto) 0.62 K/uL (0.00-0.50); Eosinophils % (auto) 6.5 %; Hematocrit (blood only) 35.6 % (42.0-52.0); Hemoglobin 11.9 g/dl (14.0-18.0); Immature Granulocytes # (auto) 0.01 K/uL (0.01-0.20); Immature Granulocytes % (auto) 0.1 %; Lymphocytes # (auto) 2.13 K/uL (1.20-3.40); Lymphocytes % (auto) 22.5 %; Mean Corpuscular Hemoglobin 29.6 pg (25.0-34.0); Mean Corpuscular Hgb Conc 33.4 g/dL (32.0-36.0); Mean Corpuscular Volume 88.6 fL (80.0-100.0); Mean Platelet Volume 9.2 fL (9.4-12.4); Monocytes # (auto) 0.91 K/uL (0.11-0.59); Monocytes % (auto) 9.6 %; Neutrophils # (auto) 5.75 K/uL (1.40-6.50); Neutrophils % (auto) 60.8 %; Platelet Count 235 K/uL (130-400); RDW Coefficient of Variation 13.9 % (11.5-14.5); RDW Standard Deviation 45.3 fL (36.4-46.3); Red Blood Count 4.02 M/uL (4.70-6.10); White Blood Count 9.47 K/ul (4.8-10.8)
[2024-03-04] MEDS: HYDROmorphone INJ 0.5 MG/0.5 ML SYR IV PRN (11:00)
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
== END 2024-03-04 13:03 | disposition home or self-care (01) ==
LOC: ED 15:53 → 3N 15:53 → SUATTDRO 19:35 → 3N 20:49